=== PATIENT | female | born 1990 | race Hispanic/Latino ===

== ENCOUNTER 2016-08-14 20:30 | Inpatient (IN) | payer OTHER ==
[~2016-08-14] VITALS: Ht 149.9 cm; Wt 72.1 kg
[2016-08-14] MEDS ORDERED: Lactated Ringer's 1,000 ML IV PRN (21:21)
[2016-08-14] MEDS ORDERED: Oxytocin 10 Unit/mL Inj IM PRN (21:25)
[2016-08-14] MEDS ORDERED: Sodium Chloride LOK Flush 10 mL Syringe IVFLUSH PRN (21:25)
[2016-08-14] MEDS ORDERED: Methylergonovine 0.2 mg/mL Inj IM PRN (21:25)
[2016-08-14] MEDS ORDERED: Carboprost 250 mCg/mL Inj IM PRN (21:25)
[2016-08-14] MEDS ORDERED: Hemorrhage Kit, Post Partum XX ONE (21:25)
[2016-08-14] MEDS ORDERED: Oxytocin 30 Units/500 mL LR 30 UNITS in IV Premix 1 EACH IV PRN (21:25)
[2016-08-14] MEDS ORDERED: fentaNYL-PF 50 mCg/mL 2 mL Inj IVPUSH PRN (21:25)
[2016-08-14] MEDS ORDERED: Ondansetron 2 mg/mL 2 mL Inj IVPUSH PRN (21:25)
[2016-08-14 22:18] LABS: Mean Corpuscular Hemoglobin 30.9 pg (27.0-35.0)
[2016-08-14] MEDS ORDERED: diphenhydrAMINE 25 mg Capsule PO PRN (22:20)
--- NOTE | 2016-08-14 22:27 | PCM.HPOB ---
Subjective Date of Service: August 14, 2016 Referring Provider: Admitting Physician: Henrietta Munoz MD Primary Care Physician: Kayden Hawley MD Attending Physician: Henrietta Munoz MD Chief Complaint Leaking fluid History of Present History of Present Illness 25 Y/O at 39w 4 d LADONNA 08/17/16 by LMP and CW 7 weeks US. Complicated with: 1. This after missed BCP. 2. Abn 1 hrGTT, 3 hr GTT. 3. Obesity current BMI 32 during . Past Medical History Gynecologic History: Menarche at age 14, Last pap smear 09/02/15 , WNL, no H/O of abn pap smears. Menses irregular in the past then used Nexplanon. Then regular on BCP. Denies H/O STI. Medical History: Sinusitis. Obesity current BMI 32 during . Surgical History: None Hx Tobacco Use: No Hx Alcohol Use: No Hx Substance Use: No Past Family History Family History Brother: shortly after deliver , unknown etiology. Appeared grossly normal as pt was told by her mother. MGM had a child born with deformities. Grandmother : throat cancer. Grand father Arthritis. Review of Systems ROS 10 points ROS is negative except for the items in HPI. Allergy Coded Allergies: No Known Allergies (Unverified , 08/14/16) Exam Vital Signs 125/77 84 18 36.5 Exam 130 moderate variability positive accelerations nand no deceleration, category 1 Constitutional: Well-developed HEENT: Atraumatic Lungs: Clear to Auscultation Heart: Regular Rate/Rhythm, Normal S1, Normal S2, No Murmurs/Rubs/Gallops Abdomen: Gravid (EFW with leopld's 7 lb ) Extremities: Pulses Palpable x4 Neurological/Psychiatric: Alert, Oriented X3 Neuro: Reflexes 2+ Additional Information cervix 1.5/60%/soft/-3/posterior. García score 5 Labs/Diagnostics Maternal Blood Type: O (positive) Antibody Screen: negative Group B Strep Results: Negative (07/14/16) Rubella: Immune Additional Information RPR non-reactive HBsAg negative HIV non-reactive Urine culture negative elevated 1 hr , 3 hrs with one abn reading (80, 116, 163, 111) Quad screen negative GC/CT negative 09/02/15 CBC Test 08/14/16 22:02 White Blood Count 9.5th/mm3 (3.8-10.1) Red Blood Count 4.24mil/mm3 (3.90-5.20) Hemoglobin 13.1g/dL (12.0-15.6) Hematocrit 38.6% (35.0-46.0) Mean Corpuscular Volume 91.0fL (81-100) Mean Corpuscular Hemoglobin 30.9pg (27.0-35.0) Mean Corpuscular Hemoglobin Concent 33.9% (32.0-37.0) Red Cell Distribution Width 13.6% (12.3-15.4) Platelet Count 190bil/L (150-400) OB Intrapartum Assessment/Plan Assessment 26 Y/O at 39w4d PROM , no signs of labor GBS negative elevated 1 hr , 3 hrs with one abn reading (80, 116, 163, 111) FHx of : Had a brother shortly after delivery , unknown etiology FHx of congenial anomalies: MG had a child with congenital deformities. Cervidil placed 2240 and will be removed in ~ 6 hours and will start Pitocin as per protocol. Discussed induction process and risk of CD and failed induction. All questions were answered. Consider epidural. Henrietta Munoz MD August 14, 2016 22:27
[2016-08-15] MEDS ORDERED: Oxytocin 30 Units/500 mL LR 30 UNITS in IV Premix 1 EACH IV PRN ×2 (05:00→21:20)
[2016-08-15] MEDS: Lactated Ringer's 1,000 ML IV SCH ×3 (05:05→15:08)
[2016-08-15] MEDS ORDERED: EPHEDrine Sulfate 50 mg/mL Inj ONE (05:36)
[2016-08-15] MEDS ORDERED: fentaNYL 2 mCg/mL-Bupivicaine 0.125% 100 mL Premix EPIDURAL ONE (09:41)
[2016-08-15] MEDS ORDERED: Lactated Ringer's 500 ML IV ONE (09:46)
[2016-08-15] MEDS ORDERED: Lactated Ringer's 1,000 ML IV SCH ×2 (09:46→21:18)
--- NOTE | 2016-08-15 09:46 | PCM.HPANE ---
Patient Data Surgeon Admitting Provider:Henrietta Munoz MD Attending Provider:Henrietta Munoz MD Primary Care Physician:Kayden Hawley MD Other Provider: Reason for Visit Term Labor Check TERM LABOR CHECK Ht/WT & BMI Body Mass Index Allergies Coded Allergies: No Known Allergies (Unverified , 08/14/16) Past Anesthesia History Anesthesia History: Denies:: Abnormal Airway, Anesthesia Reactions, Difficult Intubation, Fam Anesthesia Reaction, Fam Malignant Hypertherm, Malignant Hyperthermia Diabetes History Hx Diabetes?: No Medications Hypertension Medication: No Home Meds Incl Beta Cheikh: No History History of ENT Problems?: No HEENT History: Denies:: Abnormal Airway Cataracts Difficult Intubation Dysphagia Glaucoma Hearing Problem Sinus Problem TMJ Denture Type: None Teeth Condition: Within Normal Limits Hx of Heart Problems?: No Cardiovascular History: Denies:: AICD Abdominal Aortic Aneurism Atrial Fibrillation Cardiac Surgery Chest Pain Congestive Heart Failure Coronary Artery Disease Edema Heart Murmur Hypertension Irregular Heartbeat Pacemaker Peripheral Vascular Rheumatic Fever Thrombophlebitis Valvular Heart Disease Hx of Respiratory Problem?: No Respiratory History: Denies:: Asthma COPD Chest Surgery Cough Dyspnea Emphysema Hemoptysis Oxygen Administration Pneumonia Pulmonary Embolism Tuberculosis Use of C-PAP Machine Use of Inhalers / NEBS Hx Neurologic Problems?: No Neurological History: Denies:: Alzheimer's Disease CVA Dementia Dizziness Headaches Multiple Sclerosis Parkinson's Disease Peripheral Neuropathy Seizures TIA Hx of GI Problems?: Yes Gastrointestinal History: Positive for:: Heartburn Hx of Problems?: No HX of Peritoneal Dialysis: No Female Hx: Positive for:: Currently Hx Musculoskeletal Problems?: No Hx of Psycho/Social Problems?: No Hx Surgeries?: No Hx Any Other Health Problems?: No Hx Diabetes: No Hx Alcohol Use: NoHx Substance Use: No Stop/Bang Treated for Sleep Apnea?: No Do You Have a CPAP Machine?: No DAISY Risk Assessment: Low Risk, <3 Yes Risk Assessment Category Category 1A: Patient has history of documented sleep apnea, and HAS NOT received any narcotic, sedative or anesthesia administration during this stay. Category 1B: Patient has history of documented sleep apnea, and HAS received any narcotic , sedative or anesthesia administration during this stay Category 2: Patient has SUSPECTED Obstructive Sleep Apnea, and HAS received any narcotic , sedative or anesthesia administration during this stay. Category 3: Patient has SUSPECTED Obstructive Sleep Apnea and HAS NOT received narcotic, sedative or anesthesia administration during this stay. Category 4: Outpatient in Procedural Areas with known sleep apnea or who screen positive for High Risk via the STOP/BANG questionnaire. Exam Exam General Appearance: Alert, Oriented X3 HEENT/AIRWAY: MP 2 Lungs: Clear to Auscultation Heart: Regular Rate/Rhythm, Normal S1, Normal S2, No Murmurs/Rubs/Gallops Meds/Labs/Diagnostics Admission Meds Current Medications Lactated Ringer's (Lr) 1,000 ml @ 125 mls/hr Q8H IV Last administered on 05:05; Start 08/14/16 at 21:21 Dinoprostone (Cervidil Vaginal Insert) 10 mg ONCE ONCE VAGINAL Last administered on 08/14/16 22:44; Start 08/14/16 at 22:00; Stop 08/14/16 at 22:03 ; Status DC Labs Test 08/14/16 22:02 08/15/16 00:45 White Blood Count 9.5th/mm3 (3.8-10.1) Red Blood Count 4.24mil/mm3 (3.90-5.20) Hemoglobin 13.1g/dL (12.0-15.6) Hematocrit 38.6% (35.0-46.0) Mean Corpuscular Volume 91.0fL (81-100) Mean Corpuscular Hemoglobin 30.9pg (27.0-35.0) Mean Corpuscular Hemoglobin Concent 33.9% (32.0-37.0) Red Cell Distribution Width 13.6% (12.3-15.4) Platelet Count 190bil/L (150-400) Hold Urine Received (Received) Plan Impression Patient chart reviewed, patient interviewed and anesthestic plan with risks, benefits, and alternatives discussed, and informed consent obtained. ASA Physical Status: ASA2 Mod Systemic Disease Anesthetic Plan: Epidural Bene/Risks/Altern/Consents: Yes HP Complete Prior to Induction: Yes Jalen Manuel MD August 15, 2016 09:46
[2016-08-15] MEDS ORDERED: Phenylephrine/NS-PF 100 mCg/mL 5 mL Syringe IVPUSH PRN ×2 (09:50→21:35)
[2016-08-15] MEDS ORDERED: Ondansetron 2 mg/mL 2 mL Inj IVPUSH PRN ×2 (09:50→21:35)
[2016-08-15] MEDS ORDERED: EPHEDrine Sulfate 50 mg/mL Inj IVPUSH PRN (09:50)
[2016-08-15] MEDS ORDERED: Atropine 1 mg/10 mL (Code) Syringe IVPUSH PRN (09:50)
[2016-08-15] MEDS ORDERED: fentaNYL 2 mCg/mL-Bupiv 0.125% 100 ML EPIDURAL SCH (09:50)
[2016-08-15] MEDS ORDERED: Dexamethasone 4 mg/mL Inj ONE (11:11)
[2016-08-15] MEDS ORDERED: Ondansetron 2 mg/mL 2 mL Inj ONE (11:11)
[2016-08-15] MEDS ORDERED: MetoCLOpramide 5 mg/mL 2 mL Inj ONE (11:11)
[2016-08-15] MEDS ORDERED: Phenylephrine/NS 100 mCg/mL 10 mL Syringe IVPUSH ONE (11:11)
[2016-08-15] MEDS ORDERED: Phenylephrine 10,000 mCg/mL Inj ONE (11:11)
[2016-08-15] MEDS ORDERED: Oxytocin 10 Unit/mL Inj ONE (11:11)
--- NOTE | 2016-08-15 15:59 | PROG NOTE ---
[address] [address] PROGRESS NOTE PATIENT: DILIA WINKLER : 1990 MR#: [id number] ADMIT: 08/14/2016 JOB ID: [id number] DATE: 08/15/2016 Patient was admitted for induction of labor after premature rupture of membranes at term, by Dr. Munoz. Induction was started with Cervidil followed by Pitocin. *Vital signs are 104/53 for blood pressure. Respirations are 18, pulse is 73, temperature 36.6 degrees centigrade. *Cervical exam is 6 cm dilated, cervix 90% effaced, -2 station, vertex presentation. Intrauterine pressure catheter inserted to monitor adequacy of uterine contractions while on Pitocin. * heart tracing is showing baseline of 135 beats per minute, positive accelerations, no decelerations, moderate variability, category 1 heart tracing. *Epidural was adequate for pain control. Pitocin currently is at 8 corey international units per minute. ASSESSMENT AND PLAN: Patient is 26 years old, 1, para 0, at 39 weeks and 5 days gestational age by last menstrual period, confirmed by seven week ultrasound, admitted with premature rupture of membranes. 1- Induction of labor started; continue with Pitocin. Intrauterine pressure catheter inserted. 2- Category 1 heart tracing. Continue with external monitoring. 3- Epidural is adequate for pain control. 4- GBS cultures are negative. All the above discussed in details with the patient who agreed to the plan. [facility]
[2016-08-15] MEDS ORDERED: Sodium Chloride LOK Flush 10 mL Syringe IVFLUSH SCH (16:30)
[2016-08-15] MEDS ORDERED: Sodium Citrate-Citric Acid 15 mL Solution PO SCH (20:25)
[2016-08-15] MEDS ORDERED: CeFAZolin Inj 2 GM in IV Premix 1 EACH IV ONE (20:25)
[2016-08-15] MEDS ORDERED: Morphine PF 1 mg/mL 10 mL Inj ONE (20:46)
[2016-08-15] MEDS ORDERED: Oxytocin 10 Unit/mL Inj IM PRN (21:20)
[2016-08-15] MEDS ORDERED: Hemorrhage Kit, Post Partum XX ONE (21:20)
[2016-08-15] MEDS ORDERED: LANOlin HPA 7 Gm Ointment TOPICAL PRN (21:20)
[2016-08-15] MEDS ORDERED: HYDROcodone-APAP 5-325 mg Tablet PO PRN (21:20)
[2016-08-15] MEDS ORDERED: Methylergonovine 0.2 mg/mL Inj IM PRN (21:20)
[2016-08-15] MEDS ORDERED: Sodium Chloride LOK Flush 10 mL Syringe IVFLUSH PRN (21:20)
[2016-08-15] MEDS ORDERED: Acetaminophen IV 1,000 MG in IV Premix 1 EACH IV PRN (21:20)
[2016-08-15] MEDS ORDERED: Carboprost 250 mCg/mL Inj IM PRN (21:20)
[2016-08-15] MEDS ORDERED: oxyCODONE-Acetamin 5-325 mg Tablet PO PRN (21:20)
[2016-08-15] MEDS ORDERED: Lactated Ringer's 1,000 ML IV PRN (21:34)
[2016-08-15] MEDS ORDERED: Atropine 0.4 mg/mL Inj IV PRN (21:35)
[2016-08-15] MEDS ORDERED: MetoCLOpramide 5 mg/mL 2 mL Inj IVPUSH PRN (21:35)
[2016-08-15] MEDS ORDERED: Dexamethasone 4 mg/mL Inj IVPUSH PRN (21:35)
[2016-08-15] MEDS ORDERED: Morphine PF 1 mg/mL 10 mL Inj EPIDURAL ONE (21:35)
[2016-08-15] MEDS ORDERED: HYDROmorphone 1 mg/mL Inj IVPUSH PRN (21:35)
[2016-08-15] MEDS ORDERED: fentaNYL-PF 50 mCg/mL 2 mL Inj IVPUSH PRN (21:35)
--- NOTE | 2016-08-15 22:06 | PROG NOTE ---
[address] [address] PROGRESS NOTE PATIENT: DILIA WINKLER : 1990 MR#: [id number] ADMIT: 08/14/2016 JOB ID: [id number] DATE: 08/15/2016 SUBJECTIVE: This is a 26-year-old female. She is 1, para 0, at full term. She was admitted by Dr. Hawley for rupture of membranes at 8 p.m. last night. She started Pitocin this morning and she was noted to be 6 cm dilated at 12 o'clock. She was examined at two o'clock at 7 cm dilated and at four o'clock still 7 cm dilated. When I started my shift at five o'clock, I examined patient at six o'clock, she was still 7 cm dilated. She had been on Pitocin and her contractions were suboptimal. The Middleton was around 150 but with increasing Pitocin it caused hyperstimulation. I talked with the patient as six o'clock that the plan is we will try to optimize the Pitocin to have better contraction and re-evaluate at eight o'clock. I examined the patient again at eight o'clock. Her cervix is still 7 cm dilated, 90% effaced, -1 to -2, clear fluid with caput increased to 2 to 3 cm from 1 cm at seven o'clock. Her contraction is still ranging from either hyperstimulation or Middleton 150 milliunit. Discussed with patient and her , explained sensation that she has been ruptured for 28 hours and she has being in active labor for eight hours, no progress, has been from 6 cm to 7 cm and with although suboptimal contraction but could not get her contractions stronger. Even with suboptimal contraction at 150 Middleton still with no progress in eight hours, still suggesting a diagnosis of CPD. Discussed with patient of the choice at this time for primary section. Explained the reason, the benefit, risk. Patient discussed with her and agreed with the plan. We will stop Pitocin at this time and we will plan for primary section. Discussed with the patient about the risks of infection, bleeding, injury to the organs around the uterus including, but not limited to the bladder, ureters, major vessels, nerves, and bowels. Informed consent signed. DEVANTE
[2016-08-15] MEDS: EPHEDrine Sulfate 50 mg/mL Inj IVPUSH PRN (22:54)
[2016-08-16] MEDS: EPHEDrine Sulfate 50 mg/mL Inj IVPUSH PRN (00:19)
--- NOTE | 2016-08-16 01:44 | OP ---
[address] [address] OPERATIVE REPORT PATIENT: DILIA WINKLER : 1990 MR#: [id number] ADMIT: 08/14/2016 JOB ID: [id number] DATE OF SURGERY: 08/15/2016 SURGEON: Telma Omer MD APARTMENT LEASING CONSULTANT: Allen Hilario MD. The nursing surgical services director was very necessary for this procedure for exposure and to have this procedure completed smoothly. PREOPERATIVE DIAGNOSIS(ES): Arrest of dilation. POSTOPERATIVE DIAGNOSIS(ES): Arrest of dilation. INDICATION FOR PROCEDURE: Arrest of dilation. This is a 26-year-old female, 1, para 1 now. Pitocin induction after rupture of membranes, and arrested at 6-7 cm for 8 hours. Discussed with the patient about the benefit, risk, and alternatives of primary section. The patient understood the risk of infection, bleeding, injury to the organs around the uterus including, but not limited to, the bladder, ureters, major vessels, nerves, and bowels. Informed consent signed. PROCEDURE IN DETAIL: The patient was transferred to the operating room. After anesthesia was noted to be adequate, she was placed on dorsal supine position with a leftward tilt. She was prepared and draped in normal sterile fashion. A Pfannenstiel incision was placed with scalpel and this incision was carried through to the underlying fascia with a scalpel. A transverse incision was placed on fascia and extended bilaterally with Elizabeth scissors. The superior aspect of the incision was grasped by Kochers and tented up. The underlying rectus muscle dissected off. The inferior aspect of the incision was grasped by Kochers and tented up. The underlying rectus muscle was dissected off. The rectus muscle was in the midline. The underlying peritoneum identified and entered sharply with direct visualization. This incision was extended both bluntly and sharply. Lower blade inserted to expose the lower segment of the uterus. The vesicouterine peritoneum entered sharply and extended bilaterally with Metzenbaum scissors, and the bladder flap created digitally. The lower blade reinserted. Transverse incision was placed with scalpel and extended bluntly. At this time, all instruments cleared from the field. The was delivered without difficulty in ROP position. The shoulder and chest delivered without difficulty. The had good tone and spontaneous cry. The cord clamped one minute after delivery. The infant handed to the waiting aircraft sheet metal mechanic. Cord blood collected. The placenta delivered spontaneously completely and examined with three-vessel cord. Then, after delivery of the placenta, the uterus feels very bulky. Manual massage and Pitocin was started. The incision was closed with 0-Vicryl continuously with locked fashion. A 2nd layer of the same suture was placed for imbrication. Hemostasis confirmed after the closure of the incision. The pelvic cavity was irrigated by warm normal saline. The uterus was returned back to the pelvic cavity. The incision was re-examined and noticed one bleeder. A [id number] suture was placed, hemostasis confirmed. Bilateral tubes and ovaries examined, with no abnormal finding. Then, the fascia was reapproximated with 0 Vicryl continuously. The subcutaneous fat tissue was approximated with 2-0 Vicryl continuously. The skin was reapproximated with 4-0 Monocryl on a Tono needle subcutaneously. The patient tolerated the procedure well. All instrument, needles, laps, and gauzes counted correct twice. The EBL was about 500 cc. The patient was transferred to the recovery room in a stable condition. SCD was placed before the procedure and 2 g of Ancef was given before the procedure. MTDD
[2016-08-16 07:36] LABS: Mean Corpuscular Hemoglobin 30.4 pg (27.0-35.0); Mean Corpuscular Volume 91.6 fL (81-100)
--- NOTE | 2016-08-16 13:00 | PROG NOTE ---
[address] [address] PROGRESS NOTE PATIENT: DILIA WINKLER : 1990 MR#: [id number] ADMIT: 08/14/2016 JOB ID: [id number] DATE: 08/16/2016 Patient is doing well this morning. with no difficulties. OBJECTIVE: Vital signs are 191/53 for blood pressure, respirations are 17, pulse is 94, temperature 36.5 degrees centigrade. Heart is regular rate and rhythm. Positive S1, S2. Lungs clear to auscultation bilaterally. Abdomen firm. Uterine fundus palpated above the umbilicus. Incision is clean, dry, and intact with Steri-Strips in place. Appropriate tenderness around the incision. Perineum: No active bleeding. Lower extremities: No calf tenderness appreciated bilaterally. H and H this morning is 9.8 and 29.5, platelets 175. White blood count is 19.6. ASSESSMENT AND PLAN: Patient is 26 years old, 1, para 1, postop day number 1, status post primary section for arrest of dilation. 1- Anemia: Started on iron and vitamin C supplementation. 2- Continue with postop care. MTDD
[2016-08-16] MEDS: Ascorbic Acid 500 mg Tablet PO SCH (18:20)
--- NOTE | 2016-08-17 08:08 | PCM.DIOB ---
Obstetrical Disch Instruction Date of Service: August 17, 2016 Dates of Hospitalization Date of Hospital Admission August 14, 2016 at 21:15 Providers Admitting Physician: Henrietta Munoz MD Primary Care Physician: Kayden Hawley MD Attending Physician: Henrietta Munoz MD Discharge Diagnosis Discharge Diagnosis POD#2 S/P PLTCS ,anemia Problems: Diet Discharge Diet: No restrictions Activity Discharge Activity-General: Pelvic Rest for 6 weeks, No lifting >10 pounds for 4-6 weeks Dressing and Incisional Care Dressing Care: Keep dressing clean, dry & intact Hygiene: August shower Follow Up Plan Follow-up Provider (F9): Kayden Hawley MD Follow-up appointment: Weeks (2) Call your provider for: Fever or Chills, Shortness of breath, Heavy vaginal bleeding, Other (excessive pain not controlled with pain medications. Abnormal wound discharge.) Kayden Hawley MD August 17, 2016 08:08
[2016-08-17] MEDS ORDERED: OXYC1TAB24 PO (08:12)
[2016-08-17] MEDS ORDERED: Ascorbic Acid PO (08:12)
[2016-08-17] MEDS ORDERED: DOCU-41 PO (08:12)
[2016-08-17] MEDS ORDERED: FERR-74 PO (08:12)
[2016-08-17] MEDS ORDERED: IBUP-1827 PO (08:12)
[2016-08-17] MEDS: Ascorbic Acid 500 mg Tablet PO SCH (08:29)
--- NOTE | 2016-08-17 09:02 | DIS ---
[address] [address] DISCHARGE SUMMARY PATIENT: DILIA WINKLER : 1990 MR#: [id number] ADMIT: 08/14/2016 JOB ID: [id number] DIS: 08/17/2016 HOSPITAL COURSE: Admitted for induction of labor secondary to premature rupture of membranes. Postop day #2 status post primary low transverse section for arrest of dilation and anemia. For further details, please refer to the fully dictated notes. On the day of discharge, the patient had no complaints. Voiding, ambulating, tolerating p.o. intake. with no difficulties. OBJECTIVE: Vital signs are 101/52 for blood pressure, respirations are 20, pulse is 92, temperature 36.9 degrees centigrade. Heart is regular rate and rhythm. Positive S1, S2. Lungs: Clear to auscultation bilaterally. Abdomen firm. Uterine fundus palpated above the umbilicus. Incision is clean, dry, and intact, with Steri-Strips in place. Appropriate tenderness around the incision. Perineum: No active bleeding. Lower extremities: No calf tenderness appreciated bilaterally. H and H on postop day #1 was 9.8 and 29.5. The patient was started on iron supplementation in-house. DISCHARGE PLAN: The patient will be discharged home in stable condition. Will follow up with Dr. Hawley in the office in two weeks. Instructed to have nothing in the vagina for six weeks. No heavy lifting more than baby's weight. Instructed to call for fever, chills, severe abdominal pain uncontrolled with medication, heavy vaginal bleeding, abnormal wound discharge or any other concerning symptoms. DISCHARGE MEDICATIONS: 1. Ibuprofen 600 mg every 6 hours. 2. Percocet 5/325, one tab with every 4 hours as needed for severe pain. 3. Colace 100 mg twice daily. 4. Ferrous sulfate 325 mg twice daily. 5. Vitamin C 500 mg twice daily. 6. vitamins once daily. The patient understood the discharge instructions. She will comply with her discharge plan. [facility]
[2016-08-17 15:37] VITALS: BP 107/61; PULSE 103; RESP 24
== END 2016-08-17 19:35 | disposition home or self-care (01) | DRG 766 ==
LOC: FBCO 20:30 → FBC 21:15
PROVIDERS: ADMIT Obstetrics & Gynecology; ATTEND Obstetrics & Gynecology
PROC: 10H07YZ Insertion of Other Device into Products of Conception, Via Natural or Artificial Opening (ICD-10-PCS; 2016-08-15)
PROC: 3E0P7GC Introduction of Other Therapeutic Substance into Female Reproductive, Via Natural or Artificial Opening (ICD-10-PCS; 2016-08-15)
PROC: 10D00Z1 Extraction of Products of Conception, Low, Open Approach (ICD-10-PCS; principal; 2016-08-15 21:19)
DX: O42.02 Full-term premature rupture of membranes, onset of labor within 24 hours of rupture (principal); O62.1 Secondary uterine inertia; Z37.0 Single live birth; Z3A.39 39 weeks gestation of pregnancy